=== PATIENT | female | born 1960 | race Caucasian/White ===

== ENCOUNTER 2019-12-14 05:48 | Outpatient (CLI) | payer OTHER ==
[~2019-12-14] VITALS: Ht 178 cm; Wt 95.4 kg
[2019-12-14] MEDS ORDERED: [UNRECOGNIZED DRUG - CODE] PO (15:31)
[2019-12-14] MEDS ORDERED: DULO60CA59 PO (15:31)
== END 2019-12-14 15:36 | disposition home or self-care (01) ==
LOC: PREOP 05:48
PROVIDERS: ATTEND Specialist
DX: Z01.818 Encounter for other preprocedural examination (principal)

== ENCOUNTER 2019-12-18 07:15 | Day surgery (SDC) | payer OTHER ==
[~2019-12-18] VITALS: Ht 178 cm; Wt 95.4 kg
[~2019-12-18 07:15] MED LIST: DULO60CA59 PO; [UNRECOGNIZED DRUG - CODE] PO
[2019-12-18] MEDS ORDERED: LIDOCAINE PF 1% 2 ML VIAL IR PRN (07:45)
[2019-12-18] MEDS ORDERED: MOXIFLOXACIN OPHTH SOLN 5 MG/ML 0.3 ML SYRINGE OP ONE (07:45)
[2019-12-18] MEDS ORDERED: POVIDONE (BETADINE) OPHTH SOLN 5% 30 ML OP ONE (07:45)
[2019-12-18] MEDS ORDERED: TIMOLOL MALEATE 0.5% 5 ML (TIMOPTIC) BTL OU PRN (07:45)
[2019-12-18] MEDS: TETRACAINE 0.5% OPHTH SOLN 4 ML BTL (SINGLE DOSE ONLY) OU PRN ×4 (07:54→08:15)
[2019-12-18 07:56] VITALS: BP 121/63
[2019-12-18] MEDS: PHENYLEPHRINE 10% OPHTH (NEO-SYN) 5 ML BTL OU SCH ×3 (08:05→08:16)
[2019-12-18] MEDS: CYCLOPENTOLATE 1% (CYCLOGYL) 2 ML DROPS OP SCH ×3 (08:05→08:16)
--- NOTE | 2019-12-18 08:53 | Ophthalmologist Pre-Op Note ---
Pre-Operative Progress Note H&P Reviewed The H&P was reviewed, patient examined and no changes noted. Date H&P Reviewed: Dec 18, 2019 Time H&P Reviewed: 08:53 Pre-Op Dx Cataract, Left Eye SIENNA MCCLENDON MD Dec 18, 2019 08:53
[2019-12-18] MEDS ORDERED: MIDAZOLAM 2 MG/2 ML (VERSED) VIAL ONE (09:01)
--- NOTE | 2019-12-18 09:20 | Ophthalmology Operative Report ---
Cataract removal/placement IOL PREOPERATIVE DIAGNOSIS: Cataract Left Eye POSTOPERATIVE DIAGNOSIS: Cataract Left Eye PROCEDURE: Cataract removal and placement of posterior chamber implant, left eye SURGEON: Terry Mcclendon ANESTHESIA: Topical with sedation COMPLICATIONS: None ESTIMATED BLOOD LOSS: Minimal DESCRIPTION OF PROCEDURE: After proper informed consent was obtained, the patient, a 59 female, was taken to the Operating Room and the left eye was anesthetized with tetracaine. The left eye was then prepped and draped in the usual manner. A wire lid speculum was placed. A paracentesis was made at the left hand position. Preservative free lidocaine was injected into the anterior chamber followed by viscoelastic. A clear corneal incision was made in the temporal position. A capsulorrhexis was preformed and the central nuclear and cortical material were removed. The posterior capsule was polished and an Mehran 16.0 AU00T0 was placed into the capsular bag. The residual viscoelastic was aspirated and balanced saline solution was injected into the anterior chamber. Moxifloxacin was injected into the anterior chamber. The wound was checked and found to be water tight. The patient tolerated the procedure well without complications. TERRY MCCLENDON MD Dec 18, 2019 09:20
[2019-12-18 09:25] VITALS: BP 134/77
== END 2019-12-18 09:25 | disposition home or self-care (01) ==
LOC: SDC 07:15
PROVIDERS: ATTEND Specialist
DX: H25.12 Age-related nuclear cataract, left eye (principal); R73.03 Prediabetes; E66.9 Obesity, unspecified; M19.90 Unspecified osteoarthritis, unspecified site; Z68.30 Body mass index [BMI] 30.0-30.9, adult; Z90.710 Acquired absence of both cervix and uterus; Z79.899 Other long term (current) drug therapy; Z87.891 Personal history of nicotine dependence; Z90.89 Acquired absence of other organs; Z98.84 Bariatric surgery status; Z88.2 Allergy status to sulfonamides; Z83.511 Family history of glaucoma; Z83.3 Family history of diabetes mellitus

== ENCOUNTER 2019-12-25 06:20 | Day surgery (SDC) | payer OTHER ==
[~2019-12-25] VITALS: Ht 172 cm; Wt 95.4 kg
[2019-12-25 06:20] VITALS: BP 110/62
[2019-12-25] MEDS ORDERED: POVIDONE (BETADINE) OPHTH SOLN 5% 30 ML OP ONE (06:30)
[2019-12-25] MEDS ORDERED: MOXIFLOXACIN OPHTH SOLN 5 MG/ML 0.3 ML SYRINGE OP ONE (06:30)
[2019-12-25] MEDS ORDERED: TIMOLOL MALEATE 0.5% 5 ML (TIMOPTIC) BTL OU PRN (06:30)
[2019-12-25] MEDS: TETRACAINE 0.5% OPHTH SOLN 4 ML BTL (SINGLE DOSE ONLY) OU PRN ×4 (06:30→06:55)
[2019-12-25] MEDS ORDERED: LIDOCAINE PF 1% 2 ML VIAL IR PRN (06:30)
[2019-12-25] MEDS: CYCLOPENTOLATE 1% (CYCLOGYL) 2 ML DROPS OP SCH ×3 (06:39→06:56)
[2019-12-25] MEDS: PHENYLEPHRINE 10% OPHTH (NEO-SYN) 5 ML BTL OU SCH ×3 (06:39→06:55)
[2019-12-25] MEDS ORDERED: MIDAZOLAM 2 MG/2 ML (VERSED) VIAL ONE (07:06)
--- NOTE | 2019-12-25 07:20 | Ophthalmologist Pre-Op Note ---
Pre-Operative Progress Note H&P Reviewed The H&P was reviewed, patient examined and no changes noted. Date H&P Reviewed: Dec 25, 2019 Time H&P Reviewed: 07:20 Pre-Op Dx Cataract, Right Eye SIENNA MCCLENDON MD Dec 25, 2019 07:20
--- NOTE | 2019-12-25 07:42 | Ophthalmology Operative Report ---
Cataract removal/placement IOL PREOPERATIVE DIAGNOSIS: Cataract Right Eye POSTOPERATIVE DIAGNOSIS: Cataract Right Eye PROCEDURE: Cataract removal and placement of posterior chamber implant, right eye SURGEON: Terry Mcclendon ANESTHESIA: Topical with sedation COMPLICATIONS: None ESTIMATED BLOOD LOSS: Minimal DESCRIPTION OF PROCEDURE: After proper informed consent was obtained, the patient, a 59 female, was taken to the Operating Room and the right eye was anesthetized with tetracaine. The right eye was then prepped and draped in the usual manner. A wire lid speculum was placed. A paracentesis was made at the left hand position. Preservative free lidocaine was injected into the anterior chamber followed by viscoelastic. A clear corneal incision was made in the temporal position. A capsulorrhexis was preformed and the central nuclear and cortical material were removed. The posterior capsule was polished and Mehran 16.5 AU00T0 IOL was placed into the capsular bag. The residual viscoelastic was aspirated and balanced saline solution was injected into the anterior chamber. Moxifloxacin was injected into the anterior chamber. The wound was checked and found to be water tight. The patient tolerated the procedure well without complications. TERRY MCCLENDON MD Dec 25, 2019 07:42
[2019-12-25 07:50] VITALS: BP 114/67
--- NOTE | 2019-12-25 11:29 | Anesthesia-General Post-Op ---
MAC Patient Condition Mental Status/LOC: Same as Preop Cardiovascular: Satisfactory Nausea/Vomiting: Absent Respiratory: Satisfactory Pain: Controlled Complications: Absent Post Op Complications Complications None Follow Up Care/Instructions Patient Instructions None needed. Anesthesiology Discharge Order Discharge Order Patient was seen this morning after the procedure and she was doing well, no complaints, stable vital signs, no apparent adverse anesthesia problems. MARCO A BOWLES DO Dec 25, 2019 11:29
== END 2019-12-25 07:50 | disposition home or self-care (01) ==
LOC: SDC 06:20
PROVIDERS: ATTEND Specialist
DX: H25.11 Age-related nuclear cataract, right eye (principal); M19.90 Unspecified osteoarthritis, unspecified site; E66.9 Obesity, unspecified; R73.03 Prediabetes; F32.9 Major depressive disorder, single episode, unspecified; Z87.891 Personal history of nicotine dependence; Z79.899 Other long term (current) drug therapy; Z90.89 Acquired absence of other organs; Z68.32 Body mass index [BMI] 32.0-32.9, adult; Z90.710 Acquired absence of both cervix and uterus; Z98.84 Bariatric surgery status; Z83.511 Family history of glaucoma; Z83.3 Family history of diabetes mellitus